=== PATIENT | female | born 1960 | race Caucasian/White ===

== ENCOUNTER 2024-12-12 02:31 | Emergency (ER) | payer BC, MEDICARE ==
[~2024-12-12] VITALS: Ht 162.6 cm; Wt 79.8 kg
[2024-12-12 02:33] VITALS: TEMP 97.6
--- NOTE | 2024-12-12 03:51 | ELECTROCARDIOGRAPH REPORT ---
[facility] Test Date: 2024-12-12 Test Time: 03:49:00 Pat Name: DENA JORDAN Department: [facility]- Patient ID: [id number] Room: Gender: F Account Maintenance Representative: : 1960 Requested By: MARK CALL Order Number: [id number] Reading MD: Measurements Intervals [place] Rate: 60 P: 65 VT: 167 QRS: -46 QRSD: 147 T: 60 QT: 489 QTc: 489 Interpretive Statements Sinus rhythm RBBB and LAFB Please click the below link to view image of tracing.
--- NOTE | 2024-12-12 04:07 | Physician Documentation ---
History of Present Illness ~ Chief Complaint: Asthma Stated Complaint: COLD SYMPTOMS/ASTHMA Time Seen by MD: 04:06 HPI Patient presents to the emergency room for evaluation of cough cold congestion symptoms. She reports that when she gets these symptoms she ends up developing pneumonia. Positive sick contacts of has been with similar symptoms. No fevers. Feeling generally down trodden. She is here going to [place] from [place] and does not have a primary care. She states she usually gets prednisone and Cipro when these symptoms occur Medication Reconciliation Allergies: Coded Allergies: No Known Allergies (Unverified , 12/12/24) Review of Systems ROS All review of systems negative except as per HPI Physical Exam Vital Signs: Temperature: 97.6, Source: Temporal, Heart Rate: 85, Respiratory Rate: 21, BP: 146/98, Pulse Oximetry: 95, Weight: 79.750 Physical Exam General: Patient is awake, alert, oriented x4 in no acute distress Head: Normocephalic and atraumatic. Eyes: Conjunctival normal. EOMI. PERRL. ENT: Mucous membranes moist. Neck: Supple, trachea is midline. Chest: Clear to auscultation bilaterally without rales, rhonchi, or wheezes. There is no accessory muscle use or retractions. Extremities: Normal strength. Normal range of motion. No deformities or edema. Progress Results/Orders Results/Orders Completed Orders - FORREST SALDANA MD Electrocardiogram (12/12/24 ) Vital Signs 12/12/24 02:33 Temp 97.6 Pulse 85 Resp 21 B/P (MAP) 146/98 Pulse Ox 95 EKG/XRAY/CT/US/VASC/MRI EKG : Additional Comment EKG interpreted by myself shows time of 0349, rate 60, sinus rhythm, borderline left axis deviation, right bundle-branch block, no ST changes Medical Decision Making Findings Patient presents to the emergency room with cold symptoms as per HPI. Differentials include but are not limited to pneumonia, viral syndrome, congest lora heart failure, pulmonary embolism, ACS. EKGs reassuring. Auscultation to lungs are clear. Given patient's reported history we will treat with her usual regimen with ER precautions discussed. He had not feel patient requires a chest x-ray as we are empirically treating for possible pneumonia. Given cough and cold symptoms I do not feel she was suffering from pulmonary embolism. No dependent edema and he had not feel she is suffering from congestive heart failure. Departure Disposition: HOME / SELF CARE / HOMELESS Impression: Primary Impression: Acute respiratory infection Condition: Stable Discharge Instructions: Upper Respiratory Infection, Adult Referrals: NO PRIMARY CARE PROVIDER (PCP) Prescriptions Lorazepam (Ativan) 1 Mg Tablet 1 TAB PO HS PRN for Insomnia, #5 TAB 0 Refills Prov: FORREST SALDANA MD 12/12/24 Prednisone* (Prednisone*) 20 Mg Tablet 1 TAB PO DAILY for 5 Days, #5 TAB Prov: FORREST SALDANA MD 12/12/24 Ciprofloxacin HCl (Ciprofloxacin HCl) 500 Mg Tab 1 TAB PO Q12H for 7 Days, #14 TAB Prov: FORREST SALDANA MD 12/12/24 Education Educated: Patient Educated regarding: diagnosis, treatment, need for follow up Signature Scribe Signature: No scribe Attestation: The note accurately reflects work and decisions made by me.Forrest Saldana MD 12/12/24 04:25 FORREST SALDANA MD December 12, 2024 04:07
[2024-12-12] MEDS ORDERED: LORA-269 PO (04:25)
[2024-12-12] MEDS ORDERED: CIPR-202 PO (04:25)
[2024-12-12] MEDS ORDERED: PRED20TA PO (04:25)
[2024-12-12 05:18] VITALS: BP 140/88; PULSE 72; RESP 20; O2SAT 97
== END 2024-12-12 05:14 | disposition home or self-care (01) ==
LOC: ER 02:32
DX: J22 Unspecified acute lower respiratory infection (principal); I44.4 Left anterior fascicular block; I45.10 Unspecified right bundle-branch block
CPT/HCPCS: 93005; 99283